=== PATIENT | male | born 1960 | race African-American/Black ===

== ENCOUNTER → 2022-12-26 | Outpatient (CLI) | payer BC ==
[2022-12-26 16:45] LABS: Albumin 4.2 d/dL (3.8-4.9); Protein, Total 7.4 d/dL (6.2-8.2)
[2022-12-26 17:16] LABS: Blood Urea Nitrogen 15.6 mg/dL (9.0-27.0); Calcium 9.3 mg/dL (8.7-10.3); Carbon Dioxide 21.4 mmol/L (21.6-31.8); Chloride 105 mmol/L (96-109); Glucose 165 mg/dL (70-110); Potassium 4.6 mmol/L (3.5-5.5); Sodium 138 mmol/L (135-145)
[2022-12-28 11:48] LABS: Gamma Globulin 1.55 d/dL (0.70-1.50)
== END | disposition home or self-care (01) ==
LOC: LABWHC1 08:46
PROVIDERS: ATTEND Family Medicine
DX: Z00.00 Encounter for general adult medical examination without abnormal findings (principal); I10 Essential (primary) hypertension
CPT/HCPCS: 36415; 80048; 84165

== ENCOUNTER → 2022-12-28 | Outpatient (CLI) | payer BC | END | disposition home or self-care (01) | LOC: LABWHC1 10:13 | PROVIDERS: ATTEND Family Medicine | DX: I10 Essential (primary) hypertension (principal) | CPT/HCPCS: 36415; 83036 ==

== ENCOUNTER 2023-02-12 08:15 | Day surgery (SDC) | payer BC ==
[2023-02-08 14:47] VITALS: BMI 32.5
[~2023-02-12 08:15] MED LIST: LACTATED RINGERS 1,000 ML IV SCH; LIDOCAINE 1% (10MG/ML) FOR IV START INTRADERMA PRN
[2023-02-12 08:45] VITALS: TEMP 98.2
[2023-02-12 08:58] LABS: Glucose,Whole Blood 130 mg/dL (70-110)
[2023-02-12] MEDS ORDERED: PROPOFOL 10 MG/ML 20 ML VIAL IV ONE (09:16)
[2023-02-12] MEDS ORDERED: LIDOCAINE 1% INJ 10MG/ML (20 ML MDV) ONE (09:16)
--- NOTE | 2023-02-12 09:29 | P.PCN ---
Date of Procedure: 02/12/23 Procedure(s) Performed: BRIEF HISTORY: Patient is a 62-year-old pleasant white male scheduled for an elective colonoscopy as a part of screening for colon cancer and family history of colon cancer. His dad was diagnosed with colon cancer at a 65. PROCEDURE PERFORMED: Colonoscopy. PREOPERATIVE DIAGNOSIS: Screening for colon cancer and family history of colon cancer. IV sedation per Anesthesia. PROCEDURE: After informed consent was obtained, the patient, was brought into the endoscopy unit. IV sedation was administered by Anesthesia under continuous monitoring. Digital rectal examination was normal. Initially the Olympus CF-160 flexible video colonoscope was then inserted in the rectum, gradually advanced into the cecum without any difficulty. Careful examination was performed as the scope was gradually being withdrawn. Ileocecal valve and the appendiceal orifice were visualized and appeared normal. Prep was excellent. Mucosa of the cecum, ascending colon, transverse colon, descending colon, sigmoid colon, and rectum appeared normal. Retroflexion was performed in the rectum and no lesions were seen. The patient tolerated the procedure well. IMPRESSION: Normal-appearing colon from rectum to cecum with no evidence of colorectal neoplasia. RECOMMENDATIONS: Findings of this examination were discussed with the patient as well as his family. Advised to have a repeat screening colonoscopy in 5 years because of the family history of colon cancer.
[2023-02-12 09:59] VITALS: BP 136/87; PULSE 85; RESP 16
== END 2023-02-12 10:20 | disposition home or self-care (01) ==
LOC: ORWHC2ENDO 08:15 → EDBD 09:15 → MERGE 09:15 → ORWHC2ENDO 10:20
PROVIDERS: ATTEND Internal Medicine Gastroenterology
DX: Z12.11 Encounter for screening for malignant neoplasm of colon (principal); I10 Essential (primary) hypertension; E78.5 Hyperlipidemia, unspecified; K21.9 Gastro-esophageal reflux disease without esophagitis; F17.200 Nicotine dependence, unspecified, uncomplicated; Z88.1 Allergy status to other antibiotic agents; Z88.8 Allergy status to other drugs, medicaments and biological substances; Z79.899 Other long term (current) drug therapy; Z80.0 Family history of malignant neoplasm of digestive organs
CPT/HCPCS: 45378; J2001; J2704